=== PATIENT | male | born 1945 | race Caucasian/White ===

== ENCOUNTER 2018-02-09 21:15 | Emergency (ER) | payer OTHER ==
[2018-02-09 21:35] VITALS: BP 149/89; PULSE 94; TEMP 98; BMI 26.3
--- NOTE | 2018-02-09 21:53 | PDOC ---
History of Present Illness - General History Source: Patient Exam Limitations: No Limitations - History of Present Illness Initial Comments: 02/10/18 00:58 The patient is a 72 year old male with a significant past medical history of hypertension, hyperlipidemia, and ulcers who presents to the emergency department for evaluation of abdominal pain and vomiting. The patient reports a 2 day history of abdominal pain. He describes the abdominal pain as intermittent , localized to the periumbilical area. Pt states the abdominal pain occurred at 11pm last night after eating cookies and drinking milk and fiber juice. The patient reports waking up the next morning at 11am with the abdominal pain and sudden onset of coffee ground vomiting. He reports 3 episodes of coffee ground vomit secondary to onset of abdominal pain, noting the last episode to be at 7pm. Pt reports normal bowel movements, but notes there may be blood when he wipes secondary to hemorrhoids. He states he ate chicken at 5pm today. Pt also reports 1.5 month of headache localized to the right parietal lobe. The patient reports an associated symptom of constipation. The patient denies history of kidney stones, chest pain, shortness of breath, weight loss, black/tarry stool, and dizziness. Denies fever, chills, and urinary symptoms. Allergies: Ibuprofen. Social History: No reported drug use. Occasional 6 beers consumed. Current everyday smoker, 1ppd. Surgical History: Bilateral hernia, right shoulder, right knee PCP: Dr. Barnett <Matt Youngblood - Last Filed: 02/10/18 00:58> <Leonor Carcamo - Last Filed: 02/11/18 04:19> - General Chief Complaint: Coffee Ground Emesis Stated Complaint: STOMACH PAIN Time Seen by Provider: 02/09/18 21:40 Past History <Matt Youngblood - Last Filed: 02/10/18 00:58> - Suicide/Smoking/Psychosocial Hx Smoking History: Never smoked Have you smoked in the past 12 months: No Information on smoking cessation initiated: No Hx Alcohol Use: No Drug/Substance Use Hx: No <Leonor Carcamo - Last Filed: 02/11/18 04:19> - Past Medical History Allergies/Adverse Reactions: Allergies Allergy/AdvReac Type Severity Reaction Status Date / Time ibuprofen [From Motrin] Allergy Verified 02/09/18 21:36 Home Medications: Ambulatory Orders Amlodipine Besylate 5 mg PO DAILY 02/09/18 Pravastatin Sodium 20 mg PO DAILY 02/09/18 Amoxicillin/Potassium Clav [Augmentin 875-125 Tablet] 1 each PO BID #14 tablet 02/10/18 Polyethylene Glycol 3350 [Miralax (For Daily Use) -] 17 gm PO DAILY PRN #1 bottle 02/10/18 Review of Systems - Review of Systems Able to Perform ROS?: Yes Comments:: GENERAL/CONSTITUTIONAL: No fever or chills. No weakness. HEAD, EYES, EARS, NOSE AND THROAT: No change in vision. No ear pain or discharge. No sore throat. CARDIOVASCULAR: No chest pain or shortness of breath. RESPIRATORY: No cough, wheezing, or hemoptysis. GASTROINTESTINAL: (+)Nausea. (+)Vomiting. (+)Constipation. No diarrhea. GENITOURINARY: No dysuria, frequency, or change in urination. MUSCULOSKELETAL: (+)Abdominal pain. No joint or muscle swelling or pain. No neck or back pain. SKIN: No rash NEUROLOGIC: (+)right sided headache. No vertigo, loss of consciousness, or change in strength/sensation. ENDOCRINE: No increased thirst. No abnormal weight change. HEMATOLOGIC/LYMPHATIC: No anemia, easy bleeding, or history of blood clots. ALLERGIC/IMMUNOLOGIC: No hives or skin allergy. <Matt Youngblood - Last Filed: 02/10/18 00:58> *Physical Exam - Vital Signs Last Vital Signs Temp Pulse Resp BP Pulse Ox 98.0 F 94 H 16 149/89 100 02/09/18 21:32 02/09/18 21:32 02/09/18 21:32 02/09/18 21:32 02/09/18 21:32 - Physical Exam Comments: GENERAL: Afebrile. Awake, alert, and fully oriented, in no acute distress HEAD: No signs of trauma EYES: PERRLA, EOMI, sclera anicteric, conjunctiva clear ENT: (+)Dry mucous membranes. Auricles normal inspection, hearing grossly normal , nares patent, oropharynx clear without exudates. NECK: Normal ROM, supple. LUNGS: Breath sounds equal, clear to auscultation bilaterally. No wheezes, and no crackles HEART: Regular rate and rhythm, normal S1 and S2, no murmurs, rubs or gallops ABDOMEN:(+)Gassy bowel sounds. Soft, nontender. No guarding, no rebound. No masses EXTREMITIES: Normal range of motion, no edema. No clubbing or cyanosis. No cords, erythema, or tenderness NEUROLOGICAL: Cranial nerves II through XII grossly intact. Normal speech, normal gait SKIN: Warm, Dry, normal turgor, no rashes or lesions noted. <Matt Youngblood - Last Filed: 02/10/18 00:58> - Vital Signs Last Vital Signs Temp Pulse Resp BP Pulse Ox 98.0 F 94 H 16 149/89 100 02/09/18 21:32 02/09/18 21:32 02/09/18 21:32 02/09/18 21:32 02/09/18 21:32 <Leonor Carcamo - Last Filed: 02/11/18 04:19> Heart Score/ECG Review - ECG Impressions Comment:: ECG reviewed by Dr. Carcamo at 22:51. Impression: Normal sinus rhythm at 86 bpm. Possible left atrial enlargement. <Matt Youngblood - Last Filed: 02/10/18 00:58> ED Treatment Course - LABORATORY CBC & Chemistry Diagram: 02/09/18 22:10 02/09/18 22:10 <Matt Youngblood - Last Filed: 02/10/18 00:58> - LABORATORY CBC & Chemistry Diagram: 02/09/18 22:10 02/09/18 22:10 <Leonor Carcamo - Last Filed: 02/11/18 04:19> Medical Decision Making - Medical Decision Making 02/09/18 23:53 Pt comes with vomiting coffee gorunds x 3 times today. He has normal CBC and Hb/HCT; stool guaiac is normal. Pt complains of constipation and we will treat with lactulose here and miralax at home. Pt has KYLE x 1 months and now with nausea and vomiting for no reason. We are awaiting CT head. Pt has normal chemistries. Pt is feeling and looking better. 02/10/18 00:36 Patient Name: ALPHONSO MUNOZ THIS IS A PRELIMINARY REPORT FROM [facility] DATE AND TIME: 2018-02-09 23:47:57 IMAGES: 142 EXAM: CT Head Without Intravenous Contrast CLINICAL HISTORY: nausea TECHNIQUE: Axial computed tomography images of the head/brain without intravenous contrast. This CT exam was performed using one or more of the following dose reduction techniques: Automated exposure control, Adjustment of the mA and/or kV according to patient size, Use of iterative reconstruction technique. COMPARISON: No relevant prior studies available. FINDINGS: BRAIN: NO hemorrhage or mass. VENTRICLES: NO acute changes are demonstrated. No ventriculomegaly. BONES/JOINTS: NO acute changes are demonstrated. No acute fracture. SOFT TISSUES: NO acute changes are demonstrated. SINUSES: Moderate mucosal thickening and fluid level in the dated inferior RIGHT maxillary sinus. Areas of mucosal thickening and patchy opacification in the mastoid air cells, or LEFT greater than RIGHT. MASTOID AIR CELLS: See above. IMPRESSION: 1. Moderate mucosal thickening and fluid level in the dated inferior RIGHT maxillary sinus. Areas of mucosal thickening and patchy opacification in the mastoid air cells, or LEFT greater than RIGHT. Findings suggest sinusitis. Please correlate with any known history and/ or clinical findings. There is NO evidence of destructive changes are coalescence to suggest acute/ chronic mastoiditis. 2. NO evidence of intracranial hemorrhage or mass. 3. NOTE: Negative or nonspecific CT should not exclude further evaluation if the patient's current symptoms persist. If further evaluation is felt to be indicated, follow-up should be considered with MRI. CPT: 00287. CT Scan of the head without contrast. Individualized dose optimization techniques were used for this CT. 02/11/18 04:19 Pt will follow with ENT as an outpatient <Leonor Carcamo - Last Filed: 02/11/18 04:19> *DC/Admit/Observation/Transfer - Attestations Scribe Attestion: Documentation prepared by Matt Youngblood, acting as medical instructor for Leonor Carcamo MD. <Matt Youngblood - Last Filed: 02/10/18 00:58> - Discharge Dispostion Decision to Admit order: No <Leonor Carcamo - Last Filed: 02/11/18 04:19> Diagnosis at time of Disposition: Sinusitis, Constipation - Discharge Dispostion Disposition: HOME Condition at time of disposition: Stable - Prescriptions Prescriptions: Amoxicillin/Potassium Clav [Augmentin 875-125 Tablet] 1 each PO BID #14 tablet Polyethylene Glycol 3350 [Miralax (For Daily Use) -] 17 gm PO DAILY PRN #1 bottle PRN Reason: Constipation - Referrals Referrals: Grzegorz London MD [Staff Physician] - - Patient Instructions Printed Discharge Instructions: Sinusitis, Constipation
[2018-02-09] MEDS ORDERED: PANTOPRAZOLE SODIUM 40 MG VIAL IVPB ONE (21:54)
[2018-02-09 22:17] LABS: BASO % 0.5 % (0-2.0); EOS % 0.3 % (0-4.5); HEMATOCRIT 48.1 % (35.4-49); HEMOGLOBIN 16.1 GM/dL (11.7-16.9); LYMPH % 11.2 % (8-40); MCH 30.4 pg (25.7-33.7); MCHC 33.5 g/dl (32.0-35.9); MEAN CELL VOLUME 90.8 fl (80-96); MEAN PLT VOLUME 8.3 fl (7.5-11.1); MONO % 7.8 % (3.8-10.2); NEUT % 80.2 % (42.8-82.8); PLATELET COUNT 263 K/MM3 (134-434); RBC 5.29 M/mm3 (4.00-5.60); RDW 15.4 % (11.9-15.9); WHITE BLOOD COUNT 7.1 K/mm3 (4.0-10.0)
[2018-02-09] MEDS ORDERED: SODIUM CHLORIDE 0.9% 500 ML INFUS.BAG IV ONE (22:21)
[2018-02-09] MEDS ORDERED: PANTOPRAZOLE SODIUM 80 MG/200 ML BAG IVPB ONE (22:26)
[2018-02-09] MEDS ORDERED: PANTOPRAZOLE SODIUM 40 MG/100 ML BAG IVPB ONE (22:28)
[2018-02-09 22:30] LABS: INR 1.08 (0.82-1.09); PROTHROMBIN TIME (PATIENT) 12.2 SEC (9.7-13.0)
[2018-02-09] MEDS ORDERED: LACTULOSE 20 GM/30 ML UDC (FOR ORAL USE ONLY) PO ONE (22:41)
[2018-02-09] MEDS ORDERED: ONDANSETRON 4 MG/2 ML VIAL IVPB ONE (22:42)
[2018-02-09] MEDS ORDERED: morphine CARPU-JECT 2 MG/1 ML DISP.SYRIN IVPUSH ONE (22:42)
[2018-02-09] MEDS ORDERED: MORPHINE SULFATE 2 MG/ML VIAL ONE (22:44)
[2018-02-09] MEDS ORDERED: ONDANSETRON 4 MG/2 ML VIAL ONE (22:44)
[2018-02-09 22:55] LABS: ALBUMIN 4.5 g/dl (3.4-5.0); ALK PHOS 108 U/L (45-117); AMYLASE 71 U/L (25-115); ANION GAP 8 (8-16); BILIRUBIN,TOTAL 0.7 mg/dL (0.2-1.0); BLOOD UREA NITROGEN 20 mg/dL (7-18); CALCIUM 9.7 mg/dL (8.5-10.1); CHLORIDE 100 mmol/L (98-107); CO2 31 mmol/L (21-32); CREATININE 1.2 mg/dL (0.7-1.3); GLUCOSE,RANDOM 138 mg/dL (74-106); LIPASE 140 U/L (73-393); POTASSIUM 3.8 mmol/L (3.5-5.1); SGOT/AST 27 U/L (15-37); SGPT/ALT 39 U/L (12-78); SODIUM 139 mmol/L (136-145); TOT PROT 8.2 g/dl (6.4-8.2)
[2018-02-09] MEDS ORDERED: LACTULOSE 20 GM/30 ML UDC (FOR ORAL USE ONLY) ONE (23:05)
[2018-02-10] MEDS ORDERED: AMPICILLIN NA/SULBACTAM NA 1.5 GM in SODIUM CHLORIDE 100 ML IVPB ONE (00:56)
--- NOTE | 2018-02-10 10:09 | EKG ---
Test Reason : Blood Pressure : / mmHG Vent. Rate : 086 BPM Atrial Rate : 086 BPM P-R Int : 162 ms QRS Dur : 090 ms QT Int : 376 ms P-R-T Axes : 048 003 051 degrees QTc Int : 449 ms NORMAL SINUS RHYTHM POSSIBLE LEFT ATRIAL ENLARGEMENT BORDERLINE ECG NO PREVIOUS ECGS AVAILABLE Confirmed by VITALY THORNTON, JUDIE ([id number]) on 02/10/2018 10:08:52 AM Referred By: Confirmed By:JUDIE HAIDER MD
== END 2018-02-10 02:58 | disposition home or self-care (01) ==
LOC: JER 21:15
PROC: 3E03329 Introduction of Other Anti-infective into Peripheral Vein, Percutaneous Approach (ICD-10-PCS; principal; 2018-02-09)
PROC: 3E033NZ Introduction of Analgesics, Hypnotics, Sedatives into Peripheral Vein, Percutaneous Approach (ICD-10-PCS; 2018-02-09)
PROC: 3E033GC Introduction of Other Therapeutic Substance into Peripheral Vein, Percutaneous Approach (ICD-10-PCS; 2018-02-09)
PROC: 3E033GC Introduction of Other Therapeutic Substance into Peripheral Vein, Percutaneous Approach (ICD-10-PCS; 2018-02-09)
DX: K59.00 Constipation, unspecified (principal); J01.90 Acute sinusitis, unspecified; I10 Essential (primary) hypertension; E78.5 Hyperlipidemia, unspecified; Z87.19 Personal history of other diseases of the digestive system
CPT/HCPCS: 36415; 70450-TC; 71045-TC-FY; 80053; 80307; 82150; 82272; 82550; 82553; 83690; 84484; 85025; 85610; 86850; 86900; 86901; 93005; 93010; 96365; 96375; 99284-25